=== PATIENT | male | born 1970 | race Two or more races ===

== ENCOUNTER → 2023-09-09 | Outpatient (CLI) | payer BC ==
[2023-09-09 11:55] LABS: INR 1.02 (0.9-1.15); Partial Thromboplastin Time 29.9 SEC (24.5-34.5); Prothrombin Time 10.7 sec (9.3-11.8)
[2023-09-09 12:39] LABS: Alanine Aminotransferase 37 U/L (7-40); Albumin 4.9 g/dL (3.2-4.8); Alkaline Phosphatase 80 U/L (46-116); Anion Gap 5 (5-15); Aspartate Aminotransferase 36 U/L (13-40); BUN/Creatinine Ratio 13.2 (10.0-20.0); Blood Urea Nitrogen 14 mg/dL (9-23); Calcium 10.2 mg/dL (8.5-10.1); Carbon Dioxide 26 mmol/L (20-30); Chloride 107 mmol/L (98-107); Glucose 103 mg/dL (74-106); Potassium 4.2 mmol/L (3.5-5.1); Sodium 138 mmol/L (136-145)
[2023-09-09 12:40] LABS: Bilirubin, Total 1.3 mg/dL (0.2-1.0); Total Protein 7.8 g/dL (5.7-8.2)
== END | disposition home or self-care (01) ==
LOC: LAB 11:12
PROVIDERS: ATTEND Internal Medicine
DX: Z01.812 Encounter for preprocedural laboratory examination (principal); R79.89 Other specified abnormal findings of blood chemistry; E78.9 Disorder of lipoprotein metabolism, unspecified
CPT/HCPCS: 36415; 80053; 85610; 85730

== ENCOUNTER 2023-09-25 06:40 | Inpatient (IN) | payer BC ==
[~2023-09-25] VITALS: Ht 177.8 cm; Wt 81.4 kg
[~2023-09-25 06:40] MED LIST: PANT40TA2 PO
[2023-09-25 06:59] LABS: INR 0.98 (0.9-1.15); Partial Thromboplastin Time 30.1 SEC (24.5-34.5); Prothrombin Time 10.3 sec (9.3-11.8)
[2023-09-25 07:00] LABS: Alanine Aminotransferase 32 U/L (7-40); Albumin 4.4 g/dL (3.2-4.8); Alkaline Phosphatase 97 U/L (46-116); Anion Gap 6 (5-15); Aspartate Aminotransferase 22 U/L (13-40); BUN/Creatinine Ratio 17.4 (10.0-20.0); Bilirubin, Total 0.7 mg/dL (0.2-1.0); Blood Urea Nitrogen 19 mg/dL (9-23); Calcium 9.8 mg/dL (8.5-10.1); Carbon Dioxide 26 mmol/L (20-30); Chloride 107 mmol/L (98-107); Glucose 107 mg/dL (74-106); Sodium 139 mmol/L (136-145)
[2023-09-25 07:04] LABS: Basophils # (auto) 0.2 10 ^3/uL (0-0.2); Basophils % (auto) 2.3 % (0.0-2.0); Eosinophils # (auto) 0.5 10 ^3/uL (0-0.8); Eosinophils % (auto) 7.2 % (0.0-7.0); Hematocrit 48.3 % (41.0-53.0); Hemoglobin 15.9 g/dL (13.5-17.5); Lymphocytes # (auto) 1.9 10 ^3/uL (0.4-5.4); Lymphocytes % (auto) 28.5 % (10.0-50.0); Mean Corpuscular Hemoglobin 30.9 pg (28.0-32.0); Mean Corpuscular Volume 93.6 fL (80.0-100.0); Monocytes # (auto) 0.6 10 ^3/uL (0-1.3); Monocytes % (auto) 8.9 % (0.0-12.0); Neutrophils # (auto) 3.6 10 ^3/uL (1.6-8.6); Neutrophils % (auto) 53.1 % (37.0-80.0); Nucleated Red Blood Cells % 0.7 %; Red Blood Cells 5.16 10^6/uL (4.5-5.90); White Blood Cell 6.7 10^3/uL (4.4-10.8)
[2023-09-25] MEDS ORDERED: KETAMINE 50mg/ML 1ml syringe ONE (07:18)
[2023-09-25] MEDS ORDERED: MIDAZOLAM HCL 2MG/2ML 2ml VIAL (1mg/ml) ONE (07:19)
[2023-09-25] MEDS ORDERED: GLYCOPYRROLATE 0.2 MG/ML 1ML VIAL ONE (07:19)
[2023-09-25] MEDS ORDERED: DexAMETHasone SOD PHOS 10MG/1ML VIAL INJ ONE (07:19)
[2023-09-25] MEDS ORDERED: ROCURONIUM 10MG/ML 10ML VIAL IV ONE (07:19)
[2023-09-25] MEDS ORDERED: SODIUM CHLORIDE LOCK 50 ML ONE (07:19)
[2023-09-25] MEDS ORDERED: NEOSTIGMINE 1 MG/ML INJ (10mg/10ML VIAL) ONE (07:19)
[2023-09-25] MEDS ORDERED: PROPOFOL 10 MG/ML 20 ML IV ONE (07:19)
[2023-09-25] MEDS ORDERED: MEPERIDINE HCL (50 MG/ML) 1 ML VIAL ONE (07:19)
[2023-09-25] MEDS ORDERED: fentaNYL CITRATE 100 MCG/2 ML VL ONE (07:19)
[2023-09-25] MEDS ORDERED: LIDOCAINE 1% INJ PF 5ML AMP ONE (07:28)
[2023-09-25] MEDS: ceFAZolin 2 GM/D5W100ml 100 ML IV ONE (08:26)
[2023-09-25] MEDS: TRANEXAMIC ACID 20 ML ONE (09:09)
[2023-09-25] MEDS ORDERED: MORPHINE SULFATE INJ 2 MG/ml SYRG IV PRN ×2 (09:15→12:30)
[2023-09-25] MEDS ORDERED: HYDROmorphone HCL 2 MG/ML VL/or syr IV PRN (09:15)
[2023-09-25] MEDS: LIDOCAINE 2% JELLY 11ml (GLYDO) ONE (09:19)
[2023-09-25] MEDS: LIDOCAINE W/ EPINEPHRINE 1% 20ML VIAL ONE (10:22)
[2023-09-25] MEDS ORDERED: NITROGLYCERIN 0.4 MG SL TAB SL PRN (12:30)
[2023-09-25] MEDS ORDERED: ACETAMINOPHEN 325 MG TAB PO PRN (12:30)
[2023-09-25] MEDS ORDERED: D5W/SOD CHLO 0.9% 1,000 ML IV SCH (12:30)
[2023-09-25] MEDS: ceFAZolin 1GM/50ML 50 ML IV SCH (12:30)
[2023-09-25 13:05] VITALS: O2SAT 97
[2023-09-25] MEDS: HYDROmorphone HCL 2 MG/ML VL/or syr ONE (13:21)
[2023-09-25] MEDS: HYDROmorphone HCL 2 MG/ML VL/or syr IV PRN (13:24)
[2023-09-25] MEDS: METOCLOPRAMIDE HCL 5MG/ml INJ 2ml VIAL IV PRN (13:35)
[2023-09-25] MEDS: CYCLOBENZAPRINE HCL 10 MG TAB PO SCH (13:59)
[2023-09-25 15:00] VITALS: BP 125/76; PULSE 76; RESP 16; TEMP 97.4; O2SAT 98
[2023-09-25] MEDS: MORPHINE SULFATE INJ 2 MG/ml SYRG IV PRN (15:27)
[2023-09-25 17:00] VITALS: BP 111/58; PULSE 74; RESP 18; TEMP 97.4; O2SAT 95
[2023-09-25] MEDS: HYDROcodone-ACET 10/325MG TAB PO PRN (17:25)
[2023-09-25] MEDS: ONDANSETRON HCL 4 MG/2 ML VIAL IV PRN (18:58)
[2023-09-25 20:00] VITALS: PULSE 94; RESP 16; O2SAT 96
[2023-09-25] MEDS: DOCUSATE SOD 100 MG CAP PO SCH (21:38)
[2023-09-25 22:00] VITALS: BP 127/66; PULSE 80; RESP 20; O2SAT 98
[2023-09-26 08:00] VITALS: PULSE 79
[2023-09-26] MEDS: PANTOPRAZOLE 40 MG TAB PO SCH (08:46)
[2023-09-26 09:00] VITALS: BP 134/76; PULSE 77; RESP 22; TEMP 98.7; O2SAT 100
[2023-09-26 13:00] VITALS: BP 134/80; PULSE 77; RESP 16; TEMP 98.4; O2SAT 95
[2023-09-26 17:00] VITALS: BP 141/84; PULSE 83; RESP 20; TEMP 97.5; O2SAT 98
[2023-09-26 19:30] VITALS: PULSE 81; RESP 17
[2023-09-26 22:00] VITALS: BP 125/80; PULSE 79; RESP 20; TEMP 98.3; O2SAT 99
[2023-09-26] MEDS: MORPHINE SULFATE 4 MG/ML SYR/VIAL IV ONE (22:58)
[2023-09-26] MEDS: OXYCODONE W/ ACETAMINOPHEN 5/325MG TABLET PO PRN (23:50)
[2023-09-27] MEDS: MORPHINE SULFATE 4 MG/ML SYR/VIAL IV PRN (02:35)
[2023-09-27 05:00] VITALS: BP 126/71; PULSE 72; RESP 20; TEMP 98.5; O2SAT 72
[2023-09-27 05:37] LABS: Basophils # (auto) 0.1 10 ^3/uL (0-0.2); Basophils % (auto) 0.7 % (0.0-2.0); Eosinophils # (auto) 0.3 10 ^3/uL (0-0.8); Hematocrit 41.9 % (41.0-53.0); Hemoglobin 13.9 g/dL (13.5-17.5); Lymphocytes # (auto) 2.2 10 ^3/uL (0.4-5.4); Lymphocytes % (auto) 23.3 % (10.0-50.0); Mean Corpuscular Hemoglobin 31.1 pg (28.0-32.0); Mean Corpuscular Volume 94.2 fL (80.0-100.0); Monocytes # (auto) 1.1 10 ^3/uL (0-1.3); Monocytes % (auto) 11.7 % (0.0-12.0); Neutrophils # (auto) 5.8 10 ^3/uL (1.6-8.6); Neutrophils % (auto) 61.3 % (37.0-80.0); Red Blood Cells 4.45 10^6/uL (4.5-5.90); Red Cell Distribution Width 13.8 % (11.8-14.3); White Blood Cell 9.5 10^3/uL (4.4-10.8)
[2023-09-27 08:00] VITALS: PULSE 79
[2023-09-27 09:00] VITALS: BP 132/84; PULSE 85; RESP 20; TEMP 97.5; O2SAT 97
[2023-09-27 17:00] VITALS: BP 125/99; PULSE 99; RESP 22; TEMP 98.4; O2SAT 99
[2023-09-27 19:30] VITALS: PULSE 90; RESP 17
[2023-09-27 22:00] VITALS: BP 129/78; PULSE 91; RESP 20; TEMP 98.3; O2SAT 96
[2023-09-28] VITALS (7 sets, daily range): BP systolic 127–135; BP diastolic 78–85; PULSE 76–102; RESP 15–20; TEMP 97.5–98.9; O2SAT 96–100
[2023-09-28] MEDS: MORPHINE SULFATE 4 MG/ML SYR/VIAL IV ONE (10:25)
[2023-09-28] MEDS: HYDROmorphone HCL 2 MG TAB PO PRN (12:05)
[2023-09-28] MEDS: CARISOPRODOL 350 MG TAB PO ONE (14:30)
[2023-09-28] MEDS: CARISOPRODOL 350 MG TAB PO SCH (20:51)
[2023-09-29 05:00] VITALS: BP 120/87; PULSE 86; RESP 18; TEMP 98.1; O2SAT 98
[2023-09-29 08:00] VITALS: PULSE 100; PULSE 107; RESP 18
[2023-09-29 09:00] VITALS: BP 125/94; PULSE 94; RESP 20; TEMP 98.3; O2SAT 99
[2023-09-29 12:44] VITALS: BP 143/92; PULSE 104; RESP 20; TEMP 99.1; O2SAT 98
[2023-09-29 16:38] VITALS: BP 145/95; PULSE 100; RESP 20; TEMP 97.6; O2SAT 98
== END 2023-09-29 17:30 | disposition home health service (06) | DRG 458 ==
LOC: SUR 06:40 → TELE 12:28 → TELE-EAST 15:12
PROVIDERS: ADMIT Orthopaedic Surgery; ATTEND Internal Medicine Geriatric Medicine
PROC: 01NB0ZZ Release Lumbar Nerve, Open Approach (ICD-10-PCS; 2023-09-25)
PROC: 4A11X4G Monitoring of Peripheral Nervous Electrical Activity, Intraoperative, External Approach (ICD-10-PCS; 2023-09-25)
PROC: 00NY0ZZ Release Lumbar Spinal Cord, Open Approach (ICD-10-PCS; 2023-09-25)
PROC: 0SG1071 Fusion of 2 or more Lumbar Vertebral Joints with Autologous Tissue Substitute, Posterior Approach, Posterior Column, Open Approach (ICD-10-PCS; principal; 2023-09-25 09:40)
DX: M96.1 Postlaminectomy syndrome, not elsewhere classified (principal); M41.56 Other secondary scoliosis, lumbar region; M48.061 Spinal stenosis, lumbar region without neurogenic claudication; M54.16 Radiculopathy, lumbar region; Y83.6 Removal of other organ (partial) (total) as the cause of abnormal reaction of the patient, or of later complication, without mention of misadventure at the time of the procedure; Y79.3 Surgical instruments, materials and orthopedic devices (including sutures) associated with adverse incidents; Y92.89 Other specified places as the place of occurrence of the external cause; Z91.81 History of falling
CPT/HCPCS: 36415; 72110; 76000; 80053; 84132; 85025; 85610; 85730; 86850; 86900; 86901; 97110; 97116; 97163; 97530; G0378; J1100; J2250; J2405; J2704

== ENCOUNTER → 2024-02-02 | Outpatient (CLI) | payer BC ==
[2024-02-02 06:35] LABS: Urine Bacteria None Seen /hpf (None Seen)
[2024-02-02 07:37] LABS: Basophils # (auto) 0.1 10 ^3/uL (0-0.2); Basophils % (auto) 1.5 % (0.0-2.0); Eosinophils # (auto) 0.5 10 ^3/uL (0-0.8); Eosinophils % (auto) 6.5 % (0.0-7.0); Hemoglobin 16.5 g/dL (13.5-17.5); Lymphocytes # (auto) 1.9 10 ^3/uL (0.4-5.4); Lymphocytes % (auto) 24.6 % (10.0-50.0); Mean Corpuscular Hemoglobin 30.5 pg (28.0-32.0); Mean Corpuscular Hgb Conc. 33.6 g/dL (32.0-36.0); Mean Corpuscular Volume 90.7 fL (80.0-100.0); Monocytes # (auto) 0.6 10 ^3/uL (0-1.3); Monocytes % (auto) 7.4 % (0.0-12.0); Neutrophils # (auto) 4.7 10 ^3/uL (1.6-8.6); Nucleated Red Blood Cells % 0.1 %; White Blood Cell 7.8 10^3/uL (4.4-10.8)
[2024-02-02 07:51] LABS: Urine Blood Negative /uL (Negative); Urine Clarity Clear (Clear); Urine Color Light-Yellow (Yellow); Urine Protein, UAD Negative (Negative); Urine Urobilinogen Normal (Negative); Urine WBC 1 /hpf (0 - 3)
[2024-02-02 08:03] LABS: Alanine Aminotransferase 29 U/L (7-40); Albumin 4.3 g/dL (3.2-4.8); Alkaline Phosphatase 101 U/L (46-116); Anion Gap 3 (5-15); Aspartate Aminotransferase 19 U/L (13-40); BUN/Creatinine Ratio 16.2 (10.0-20.0); Bilirubin, Total 0.4 mg/dL (0.2-1.0); Blood Urea Nitrogen 16 mg/dL (9-23); Calcium 9.7 mg/dL (8.5-10.1); Carbon Dioxide 26 mmol/L (20-30); Chloride 111 mmol/L (98-107); Cholesterol 156 mg/dL (< 200); Glucose 114 mg/dL (74-106); HDL Cholesterol 42 mg/dL (40-59); LDL Cholesterol 85 mg/dL (< 100); Magnesium 2.1 mg/dL (1.6-2.6); Potassium 3.9 mmol/L (3.5-5.1); Sodium 140 mmol/L (136-145); Triglycerides 329 mg/dL (< 150)
[2024-02-02 08:44] LABS: Uric Acid 4.8 mg/dL (3.7-9.2)
[2024-02-02 11:11] LABS: Folate (Folic Acid) 17.99 ng/mL (>5.38)
[2024-02-03 08:06] LABS: Testosterone 858 ng/dL (264-916)
== END | disposition home or self-care (01) ==
LOC: LAB 06:21
PROVIDERS: ATTEND Internal Medicine
DX: E78.5 Hyperlipidemia, unspecified (principal); R79.89 Other specified abnormal findings of blood chemistry
CPT/HCPCS: 36415; 80053; 80061; 81001; 82306; 82607; 82746; 83540; 83735; 84402; 84403; 84443; 84550; 85025; 87086

== ENCOUNTER → 2024-11-17 | Outpatient (CLI) | payer BC ==
[2024-11-17 06:29] LABS: Urine Bacteria None Seen /hpf (None Seen)
[2024-11-17 06:41] LABS: Urine Blood Negative /uL (Negative); Urine Clarity Clear (Clear); Urine Color Light-Yellow (Yellow); Urine Protein, UAD Negative (Negative); Urine Specific Gravity 1.014 (1.001-1.035); Urine Squamous Epithelial Cell None Seen /hpf (<5); Urine Urobilinogen Normal (Negative); Urine WBC < 1 /HPF (0-3); Urine pH 6.5 (5.0-9.0)
[2024-11-17 07:11] LABS: Basophils # (auto) 0.1 10 ^3/uL (0-0.2); Basophils % (auto) 1.4 % (0.0-2.0); Eosinophils # (auto) 0.3 10 ^3/uL (0-0.8); Eosinophils % (auto) 5.6 % (0.0-7.0); Hematocrit 46.2 % (41.0-53.0); Lymphocytes # (auto) 1.9 10 ^3/uL (0.4-5.4); Lymphocytes % (auto) 35.7 % (10.0-50.0); Mean Corpuscular Hgb Conc. 34.7 g/dL (32.0-36.0); Mean Corpuscular Volume 92.3 fL (80.0-100.0); Monocytes # (auto) 0.4 10 ^3/uL (0-1.3); Monocytes % (auto) 7.8 % (0.0-12.0); Neutrophils # (auto) 2.7 10 ^3/uL (1.6-8.6); Neutrophils % (auto) 49.5 % (37.0-80.0); Nucleated Red Blood Cells % 0.1 %; Platelet Count (auto) 226 10^3/uL (140-450); Red Blood Cells 5.01 10^6/uL (4.5-5.90); Red Cell Distribution Width 13.7 % (11.8-14.3); White Blood Cell 5.4 10^3/uL (4.4-10.8)
[2024-11-17 07:14] LABS: Chloride 107 mmol/L (98-107); Sodium 139 mmol/L (136-145)
[2024-11-17 07:15] LABS: Anion Gap 7 (5-15); Calcium 10.1 mg/dL (8.7-10.4); Carbon Dioxide 25 mmol/L (20-31)
[2024-11-17 07:20] LABS: Alkaline Phosphatase 70 U/L (46-116); BUN/Creatinine Ratio 17.3 (10.0-20.0); Blood Urea Nitrogen 18 mg/dL (9-23); Prostate Specific Antigen 1.37 ng/mL (0.0-4.0); Triglycerides 87 mg/dL (< 150)
[2024-11-17 07:21] LABS: Total Protein 7.3 g/dL (5.7-8.2)
[2024-11-17 07:22] LABS: Albumin 4.7 g/dL (3.2-4.8); Aspartate Aminotransferase 29 U/L (13-40); Cholesterol 181 mg/dL (< 200); HDL Cholesterol 58 mg/dL (40-59)
[2024-11-17 07:23] LABS: Bilirubin, Total 1.4 mg/dL (0.2-1.0); Glucose 107 mg/dL (74-106); LDL Cholesterol 107 mg/dL (< 100)
[2024-11-17 07:33] LABS: Alanine Aminotransferase 31 U/L (7-40)
[2024-11-17 09:18] LABS: Uric Acid 6.3 mg/dL (3.7-9.2)
== END | disposition home or self-care (01) ==
LOC: LAB 06:12
PROVIDERS: ATTEND Internal Medicine
DX: E61.2 Magnesium deficiency (principal); E55.9 Vitamin D deficiency, unspecified; D51.9 Vitamin B12 deficiency anemia, unspecified; E78.49 Other hyperlipidemia; E79.0 Hyperuricemia without signs of inflammatory arthritis and tophaceous disease; R94.6 Abnormal results of thyroid function studies; R82.79 Other abnormal findings on microbiological examination of urine; R82.998 Other abnormal findings in urine; R73.09 Other abnormal glucose; R68.89 Other general symptoms and signs; R82.90 Unspecified abnormal findings in urine
CPT/HCPCS: 36415; 80053; 80061; 81001; 82306; 82607; 83036; 83735; 84153; 84403; 84443; 84550; 85025; 87086

== ENCOUNTER 2025-05-10 06:17 | Outpatient (CLI) | payer BC ==
[2025-05-10 07:04] LABS: Urine Protein, UAD Negative (Negative)
[2025-05-10 07:13] LABS: Hematocrit 46.3 % (41.0-53.0); Hemoglobin 16.1 g/dL (13.5-17.5); Mean Corpuscular Hemoglobin 31.4 pg (28.0-32.0); Mean Corpuscular Volume 90.3 fL (80.0-100.0); Nucleated Red Blood Cells % 0.0 %
[2025-05-10 07:23] LABS: Alanine Aminotransferase 32 U/L (7-40); Albumin 4.4 g/dL (3.2-4.8); Alkaline Phosphatase 104 U/L (46-116); Anion Gap 8 (5-15); BUN/Creatinine Ratio 16.2 (10.0-20.0); Blood Urea Nitrogen 17 mg/dL (9-23); Calcium 9.2 mg/dL (8.7-10.4); Carbon Dioxide 24 mmol/L (20-31); Chloride 106 mmol/L (98-107); Potassium 3.7 mmol/L (3.5-5.1); Prostate Specific Antigen 1.75 ng/mL (0.0-4.0); Sodium 138 mmol/L (136-145); Total Protein 7.2 g/dL (5.7-8.2); Uric Acid 5.7 mg/dL (3.7-9.2)
[2025-05-10 07:24] LABS: Bilirubin, Total 0.8 mg/dL (0.2-1.0); Glucose 110 mg/dL (74-106)
[2025-05-10 07:45] LABS: Cholesterol 175 mg/dL (< 200); HDL Cholesterol 53 mg/dL (40-59)
[2025-05-10 07:50] LABS: Triglycerides 182 mg/dL (< 150)
== END 2025-05-10 17:00 | disposition home or self-care (01) ==
LOC: LAB 06:17
PROVIDERS: ATTEND Internal Medicine
DX: E11.9 Type 2 diabetes mellitus without complications (principal); E78.49 Other hyperlipidemia; E61.2 Magnesium deficiency; E55.9 Vitamin D deficiency, unspecified; D51.9 Vitamin B12 deficiency anemia, unspecified; R82.79 Other abnormal findings on microbiological examination of urine; R82.90 Unspecified abnormal findings in urine; R82.998 Other abnormal findings in urine; R94.6 Abnormal results of thyroid function studies; R68.89 Other general symptoms and signs
CPT/HCPCS: 36415; 80053; 80061; 81001; 82306; 82607; 82746; 83036; 83970; 84153; 84443; 84480; 84550; 85025; 87086

== ENCOUNTER → 2025-07-08 | Outpatient (CLI) | payer BC | END | disposition home or self-care (01) | LOC: LAB 07-08 11:06 | PROVIDERS: ATTEND Dermatology | DX: B07.8 Other viral warts (principal) ==